=== PATIENT | male | born 1965 | race Caucasian/White ===

== ENCOUNTER → 2021-09-04 | Outpatient (CLI) | payer BC ==
[2021-09-05 00:09] LABS: African American GFR (CKD) 76.8 (60.0-200.0); BUN/Creat Ratio 13.17 Ratio (12.00-20.00); Blood Urea Nitrogen 15.8 mg/dL (9.0-27.0); Calcium 9.4 mg/dL (8.7-10.3); Carbon Dioxide 21.4 mmol/L (20.0-27.5); Chloride 102 mmol/L (96-109); Glucose 132 mg/dL (70-110); Non-African American GFR(CKD) 66.3 (60.0-200.0); Potassium 5.1 mmol/L (3.5-5.5); Sodium 140 mmol/L (135-145)
[2021-09-05 00:10] LABS: ALT 54 U/L (10-49); AST 32 U/L (14-35); Chol/HDL Ratio 3.45 Ratio; Creatine Kinase 187 U/L (35-257); LDL Cholesterol,Calculated 79.5 mg/dL (0.0-131.0); VLDL Calculation 17.14 mg/dL (5.00-40.00)
== END | disposition home or self-care (01) ==
LOC: LABWHC1 09:28
PROVIDERS: ATTEND Family Medicine
DX: E78.5 Hyperlipidemia, unspecified (principal)
CPT/HCPCS: 36415; 80048; 80061; 82550; 83036; 84450; 84460

== ENCOUNTER → 2021-09-14 | Outpatient (CLI) | payer BC | END | disposition home or self-care (01) | LOC: LABWHC1 15:30 | PROVIDERS: ATTEND Physician Assistant | DX: R74.01 Elevation of levels of liver transaminase levels (principal) | CPT/HCPCS: 36415; 84460 ==

== ENCOUNTER → 2021-12-12 | Outpatient (CLI) | payer BC ==
[2021-12-12 08:13] LABS: Appearance,Urine Clear (Clear); Bilirubin,Urine Negative (Negative); Blood,Urine Negative (Negative); Color,Urine Yellow; Glucose,Urine (UA) 4+ (Negative); Ketones,Urine Negative (Negative); Leukocyte Esterase,Urine Negative (Negative); Nitrite,Urine Negative (Negative); PH, Urine 5.5 (5.0-8.0); Protein,Urine Negative (Negative); Specific Gravity,Urine 1.021 (1.001-1.035); Urobilinogen,Urine <2.0 mg/dL (<2.0)
[2021-12-12 10:35] LABS: HCT 45.4 % (39.6-50.0); HGB 14.7 g/dL (13.0-17.0); MCH 30.8 pg (27.0-32.0); MCHC 32.4 g/dL (32.0-37.0); Mean Platelet Volume 10.2 fL (9.5-12.2); NRBC Per 100 WBC 0 /100 WBCS (0.0-0.0); Platelet Count 248 X 10*3/uL (140-440); RBC 4.78 X 10*6/uL (4.40-5.60); RDW 13.2 % (11.5-14.5)
[2021-12-12 10:54] LABS: ALT 35 U/L (10-49); AST 29 U/L (14-35); African American GFR (CKD) 95.7 (60.0-200.0); Albumin 4.3 g/dL (3.8-4.9); Albumin/Globulin Ratio 1.48 (1.60-3.17); Alkaline Phosphatase 63 U/L (41-126); Blood Urea Nitrogen 15.8 mg/dL (9.0-27.0); Chloride 99 mmol/L (96-109); Chol/HDL Ratio 3.77 Ratio; Globulin 2.9 g/dL (1.6-3.3); Glucose 141 mg/dL (70-110); LDL Cholesterol,Calculated 82.5 mg/dL (0.0-131.0); Non-African American GFR(CKD) 82.6 (60.0-200.0); Potassium 4.1 mmol/L (3.5-5.5); Sodium 136 mmol/L (135-145); Total Protein 7.2 g/dL (6.2-8.2); Uric Acid 5.3 mg/dL (3.7-8.7)
[2021-12-12 11:03] LABS: Microalbumin Creatinine Ratio <30 mg/g Creat (0-30); Urine Creatinine 72.7 mg/dL (39.0-259.0)
== END | disposition home or self-care (01) ==
LOC: LABWHC1 07:00
PROVIDERS: ATTEND Family Medicine
DX: Z00.00 Encounter for general adult medical examination without abnormal findings (principal); M10.9 Gout, unspecified; E11.9 Type 2 diabetes mellitus without complications
CPT/HCPCS: 36415; 80053; 80061; 81003; 82043; 82570; 83036; 84153; 84550; 85027

== ENCOUNTER → 2022-06-05 | Outpatient (CLI) | payer BC ==
[2022-06-05 10:47] LABS: MCH 30.7 pg (27.0-32.0); MCHC 31.9 g/dL (32.0-37.0); MCV 96.1 fL (80.0-97.0); Mean Platelet Volume 10.1 fL (9.5-12.2); NRBC Per 100 WBC 0 /100 WBCS (0.0-0.0); Platelet Count 245 X 10*3/uL (140-440); RBC 4.89 X 10*6/uL (4.40-5.60); RDW 12.9 % (11.5-14.5); WBC 8.01 X 10*3/uL (4.50-10.00)
[2022-06-05 11:32] LABS: ALT 51 U/L (10-49); AST 31 U/L (14-35); African American GFR (CKD) 95.1 (60.0-200.0); Blood Urea Nitrogen 12.6 mg/dL (9.0-27.0); Calcium 9.2 mg/dL (8.7-10.3); Chloride 102 mmol/L (96-109); Chol/HDL Ratio 3.47 Ratio; Glucose 160 mg/dL (70-110); LDL Cholesterol,Calculated 71.8 mg/dL (0.0-131.0); Potassium 5.4 mmol/L (3.5-5.5); Sodium 137 mmol/L (135-145); Uric Acid 5.9 mg/dL (3.7-8.7); VLDL Calculation 16.54 mg/dL (5.00-40.00)
== END | disposition home or self-care (01) ==
LOC: LABWHC1 07:01
PROVIDERS: ATTEND Family Medicine
DX: I10 Essential (primary) hypertension (principal); E11.65 Type 2 diabetes mellitus with hyperglycemia; E78.5 Hyperlipidemia, unspecified; M10.9 Gout, unspecified
CPT/HCPCS: 36415; 80048; 80061; 83036; 84450; 84460; 84550; 85027

== ENCOUNTER → 2022-12-31 | Outpatient (CLI) | payer BC ==
[2022-12-31 10:59] LABS: HCT 45.2 % (39.6-50.0); HGB 14.8 d/dL (13.0-17.0); MCH 31.4 pg (27.0-32.0); MCHC 32.7 d/dL (32.0-37.0); Mean Platelet Volume 9.9 FL (9.5-12.2); NRBC Per 100 WBC 0 X 10*3/uL (0.00-0.01); Platelet Count 225 X 10*3/uL (140-440); RBC 4.71 X 10*6/uL (4.40-5.60); RDW 13.2 % (11.5-14.5); WBC 7.78 X 10*3/uL (4.50-10.00)
[2022-12-31 11:43] LABS: ALT 57 U/L (10-49); AST 38 U/L (14-35); Albumin 4.4 d/dL (3.8-4.9); Albumin/Globulin Ratio 1.76 Ratio (1.60-3.17); Alkaline Phosphatase 68 U/L (41-126); Blood Urea Nitrogen 18.1 mg/dL (9.0-27.0); Calcium 9.2 mg/dL (8.7-10.3); Carbon Dioxide 27.3 mmol/L (21.6-31.8); Chloride 102 mmol/L (96-109); Chol/HDL Ratio 3.47 Ratio; Globulin 2.5 d/dL (1.6-3.3); Glucose 162 mg/dL (70-110); LDL Cholesterol,Calculated 60.7 mg/dL (0.0-131.0); Potassium 4.4 mmol/L (3.5-5.5); Sodium 140 mmol/L (135-145); Total Protein 6.9 d/dL (6.2-8.2); Uric Acid 5.1 mg/dL (3.7-8.7)
[2022-12-31 11:55] LABS: Appearance,Urine Clear (Clear); Bilirubin,Urine Negative (Negative); Blood,Urine Negative (Negative); Color,Urine Yellow (Yellow); Ketones,Urine Negative (Negative); Nitrite,Urine Negative (Negative); PH, Urine 5.5; Specific Gravity,Urine 1.021 (1.001-1.030); Urobilinogen,Urine 0.2 E.U./DL
[2022-12-31 12:02] LABS: Bacteria,Urine None Seen (None Seen)
[2022-12-31 14:09] LABS: Microalbumin Creatinine Ratio <11 mg/g Cr (0-30)
== END | disposition home or self-care (01) ==
LOC: LABWHC1 07:08
PROVIDERS: ATTEND Family Medicine
DX: Z00.00 Encounter for general adult medical examination without abnormal findings (principal); E66.01 Morbid (severe) obesity due to excess calories; M10.9 Gout, unspecified; E11.65 Type 2 diabetes mellitus with hyperglycemia
CPT/HCPCS: 36415; 80053; 80061; 81001; 82043; 82306; 82570; 83036; 84153; 84443; 84550; 85027

== ENCOUNTER → 2023-06-25 | Outpatient (CLI) | payer BC ==
[2023-06-25 13:04] LABS: HCT 45.4 % (39.6-50.0); MCH 32.3 pg (27.0-32.0); MCV 97.8 FL (80.0-97.0); Mean Platelet Volume 10.1 FL (9.5-12.2); NRBC Per 100 WBC 0 X 10*3/uL (0.00-0.01); Platelet Count 260 X 10*3/uL (140-440); RBC 4.64 X 10*6/uL (4.40-5.60); RDW 13.2 % (11.5-14.5); WBC 8.06 X 10*3/uL (4.50-10.00)
[2023-06-25 13:39] LABS: ALT 46 U/L (10-49); AST 26 U/L (14-35); Blood Urea Nitrogen 14.4 mg/dL (9.0-27.0); Calcium 9.1 mg/dL (8.7-10.3); Carbon Dioxide 26.6 mmol/L (21.6-31.8); Chloride 101 mmol/L (96-109); Chol/HDL Ratio 3.29 Ratio; Glucose 153 mg/dL (70-110); LDL Cholesterol,Calculated 71.1 mg/dL (0.0-131.0); Potassium 4.7 mmol/L (3.5-5.5); Sodium 139 mmol/L (135-145); Uric Acid 5.6 mg/dL (3.7-8.7); VLDL Calculation 19.36 mg/dL (5.00-40.00)
== END | disposition home or self-care (01) ==
LOC: LABWHC1 07:00
PROVIDERS: ATTEND Family Medicine
DX: I10 Essential (primary) hypertension (principal); E11.65 Type 2 diabetes mellitus with hyperglycemia; E78.5 Hyperlipidemia, unspecified; M10.9 Gout, unspecified
CPT/HCPCS: 36415; 80048; 80061; 83036; 84450; 84460; 84550; 85027

== ENCOUNTER → 2024-02-03 | Outpatient (CLI) | payer BC ==
[2024-02-03 15:19] LABS: HCT 45.7 % (39.6-50.0); HGB 15.5 g/dL (13.0-17.0); MCHC 33.9 g/dL (32.0-37.0); MCV 97.4 FL (80.0-97.0); Mean Platelet Volume 10.3 FL (9.5-12.2); NRBC Per 100 WBC 0 X 10*3/uL (0.00-0.01); Platelet Count 226 X 10*3/uL (140-440); RBC 4.69 X 10*6/uL (4.40-5.60); RDW 13.2 % (11.5-14.5); WBC 8.12 X 10*3/uL (4.50-10.00)
[2024-02-03 15:25] LABS: Appearance,Urine Clear (Clear); Bilirubin,Urine Negative (Negative); Blood,Urine Negative (Negative); Color,Urine Yellow (Yellow); Ketones,Urine Negative (Negative); Nitrite,Urine Negative (Negative); Specific Gravity,Urine 1.016 (1.001-1.030); Urobilinogen,Urine 0.2 E.U./DL
[2024-02-03 15:49] LABS: ALT 57 U/L (10-49); AST 36 U/L (14-35); Albumin 4.5 g/dL (3.8-4.9); Albumin/Globulin Ratio 1.67 Ratio (1.60-3.17); Alkaline Phosphatase 64 U/L (41-126); BUN/Creat Ratio 16.64 Ratio (12.00-20.00); Blood Urea Nitrogen 18.3 mg/dL (9.0-27.0); Calcium 9.2 mg/dL (8.7-10.3); Carbon Dioxide 26.4 mmol/L (21.6-31.8); Chloride 100 mmol/L (96-109); Chol/HDL Ratio 4.57 Ratio; Globulin 2.7 g/dL (1.6-3.3); Glucose 169 mg/dL (70-110); LDL Cholesterol,Calculated 136.2 mg/dL (0.0-131.0); Potassium 5.2 mmol/L (3.5-5.5); Prostate Specific Antigen 0.33 ng/mL (0.000-4.500); Sodium 137 mmol/L (135-145); Total Protein 7.2 g/dL (6.2-8.2); Uric Acid 6.4 mg/dL (3.7-8.7)
[2024-02-03 20:01] LABS: Microalbumin Creatinine Ratio <38 mg/g Cr (0-30); Urine Creatinine 31.6 mg/dL (39.0-259.0)
== END | disposition home or self-care (01) ==
LOC: LABWHC1 09:47
PROVIDERS: ATTEND Family Medicine
DX: Z00.00 Encounter for general adult medical examination without abnormal findings (principal); M10.9 Gout, unspecified; E11.65 Type 2 diabetes mellitus with hyperglycemia
CPT/HCPCS: 36415; 80053; 80061; 81003; 82043; 82570; 83036; 84153; 84550; 85027

== ENCOUNTER → 2024-03-23 | Outpatient (CLI) | payer BC ==
--- NOTE | 2024-03-23 12:46 | US ---
EXAMINATION TYPE: US venous doppler duplex LE LT DATE OF EXAM: 03/23/2024 12:32 PM COMPARISON: NONE CLINICAL INDICATION: Male, 59 years old with history of I80.9 PHLEBITIS AND THROMBOPHLEBITIS OF UNSPE CIFIE; No hx of DVT. Patient does not take thinners. Pain. TECHNIQUE: The lower extremity deep venous system is examined utilizing real time linear array sonog ford with graded compression, color doppler sonography, and spectral doppler. SIDE PERFORMED: Left FINDINGS: VESSELS IMAGED: Common Femoral Vein Deep Femoral Vein Greater Saphenous Vein * Femoral Vein Popliteal Vein Small Saphenous Vein * Proximal Calf Veins Posterior tibial veins Peroneal veins (* superficial vessels) Left Leg: Internal echoes seen within dilated superficial veins in the left lateral calf and left la teral thigh. These veins do not compress or show color flow. These are two areas of the patient's co ncern. No evidence of DVT. IMPRESSION: 1. No evidence for DVT within the left lower extremity. 2. However, the exam is positive for SVT involving superficial varices in the lateral thigh and later al leg. [facility], , 03/23/2024 12:44 PM
== END | disposition home or self-care (01) ==
LOC: RADUSWWP 12:04
PROVIDERS: ATTEND Family Medicine